=== PATIENT | female | born 1970 | race Caucasian/White ===

== ENCOUNTER 2024-02-07 03:16 | Emergency (ER) | payer OTHER ==
[~2024-02-07] VITALS: Ht 172.7 cm; Wt 75.0 kg
[~2024-02-07 03:16] MED LIST: CALCIUM500 MG PO; MULTI-VITAMIN1 EACH PO
[2024-02-07 03:37] LABS: BASOPHILS 0.4 % (0-2); EOSINOPHILS 1.4 % (0-6); HEMATOCRIT 38.9 % (35.0-50.0); HEMOGLOBIN 13.1 g/dL (12.0-18.0); LYMPHOCYTES 47.4 % (24-44); MCH 30.5 (27-36); MCHC 33.7 g/dl (30-36); MCV 90.3 fl (81-99); MONOCYTES 8.1 % (0-12); NEUTROPHILS 42.7 % (39-80); PLATELET COUNT 212 K/uL (140-440); RBC 4.31 M/ul (4.3-5.7); RDW 13.3 (10.5-15.0)
[2024-02-07] MEDS ORDERED: MECLIZINE HCL 25 MG TAB PO ONE (03:45)
[2024-02-07] MEDS ORDERED: ondansetron HCL 4 MG/2 ML VIAL IV ONE (03:45)
[2024-02-07 03:57] LABS: ALBUMIN 3.7 g/dL (3.4-5.0); ALBUMIN/GLOBULIN RATIO 0.9 (1.1-2.4); ANION GAP 13.6 (7-21); BILIRUBIN, TOTAL 0.3 ng/dL (0.2-1.0); BUN/CREATININE RATIO 23.15 (6.0-28.6); CALCIUM 9.6 mg/dL (8.5-10.1); CREATININE, SERUM 0.95 mg/dL (0.55-1.02); MAGNESIUM 2.3 mg/dL (1.8-2.4); POTASSIUM 3.6 mmol/L (3.5-5.1); PROTEIN, TOTAL 7.8 g/dL (6.4-8.2)
[2024-02-07] MEDS ORDERED: droPERidol 5 MG/2 ML VIAL IV ONE (04:30)
[2024-02-07 05:12] LABS: BILIRUBIN, URINE NEGATIVE (negative); BLOOD/HGB, URINE NEGATIVE (Negative); KETONE, URINE NEGATIVE (Negative); LEUK ESTERASE, URINE NEGATIVE (negative); NITRITE, URINE NEGATIVE (negative)
[2024-02-07] MEDS ORDERED: MECLIZINE HCL25 MG PO (05:16)
[2024-02-07] MEDS ORDERED: ONDANSETRON ODT8 MG PO (05:16)
[2024-02-07] MEDS ORDERED: PROMETHEGAN25 MG PR (05:16)
[2024-02-07] MEDS ORDERED: ONDANSETRON 4 MG HOME.PACK SL ONE (05:30)
[2024-02-07] MEDS ORDERED: PROMETHAZINE HCL 25 MG SUPP. HOME.PACK PR ONE (05:30)
[2024-02-07 05:44] VITALS: BP 114/82
--- NOTE | 2024-02-07 20:33 | EKG ---
[facility] [address] [facility] [place] [id number] Signed Sinus bradycardia Otherwise normal ECG No previous ECGs available Confirmed by Kolby Delvalle MD ([id number]) on 02/07/2024 8:33:21 PM Electronically Signed By: KOLBY DELVALLE MD 02/07/242032 PATIENT NAME: NORMA AGUILA RODRICK Electrocardiogram DATE OF : 70 PHYSICIAN: KOLBY DELVALLE MD REPORT #: [id number] REPORT IS CONFIDENTIAL AND NOT TO BE RELEASED WITHOUT AUTHORIZATION
== END 2024-02-07 05:45 | disposition home or self-care (01) ==
LOC: ED 03:16
PROVIDERS: Family Medicine
DX: R42 Dizziness and giddiness (principal); R11.2 Nausea with vomiting, unspecified
CPT/HCPCS: 36415; 70450; 80053; 81003; 83735; 84484; 85025; 93005; 93010; 96374; 96375; 99284-25; A9270; J1790; J2405